=== PATIENT | male | born 1985 | race Caucasian/White ===

== ENCOUNTER 2017-07-22 21:41 | Emergency (ER) | payer OTHER ==
[2017-07-22] MEDS ORDERED: Amoxicillin/Clavulanate TAB* 875 MG PO ONE (21:47)
[2017-07-22] MEDS ORDERED: Lidocaine 2% PF * 5 ML VIAL INJ ONE (21:48)
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
[2017-07-22 22:08] VITALS: BP 157/91
== END 2017-07-22 22:20 | disposition home or self-care (01) ==
LOC: UCEAST 21:41
DX: Z72.0 Tobacco use (principal); S51.812A Laceration without foreign body of left forearm, initial encounter; W54.0XXA Bitten by dog, initial encounter; Y93.89 Activity, other specified; Y92.9 Unspecified place or not applicable; Y99.9 Unspecified external cause status
CPT/HCPCS: 12002; 99212; A9270-GY; G0463